=== PATIENT | male | born 1985 | race Hispanic/Latino ===

== ENCOUNTER 2017-06-30 23:39 | Emergency (ER) | payer SELFPAY ==
[2017-06-30] MEDS ORDERED: methylPREDNISolone Sod Succ/PF 125 MG/2 ML VIAL ONE (23:57)
--- NOTE | 2017-07-01 07:41 | RAD ---
PORTABLE AP CHEST: Date: 06/30/17 HISTORY: Wheezing. FINDINGS: Cardiac silhouette and pulmonary vasculature are within normal limits. Lungs are clear. Osseous struc tures are intact. IMPRESSION: No acute cardiopulmonary process. POS: [facility]
== END 2017-07-01 01:12 | disposition home or self-care (01) ==
LOC: ERS 23:39
DX: J45.901 Unspecified asthma with (acute) exacerbation (principal); E03.9 Hypothyroidism, unspecified; F17.200 Nicotine dependence, unspecified, uncomplicated; Z79.899 Other long term (current) drug therapy
CPT/HCPCS: 71045; 94640; 94760; 96361; 96374; J2930; J7620